=== PATIENT | female | born 1945 | race Caucasian/White ===

== ENCOUNTER 2019-09-14 08:08 | Outpatient (CLI) | payer MEDICARE, OTHER, SELFPAY ==
--- NOTE | 2019-09-14 08:51 | ECG_ITS ---
Measurements Intervals [place] Rate: 54 P: 62 MI: 190 QRS: -9 QRSD: 97 T: 7 QT: 397 QTc: 378 Interpretive Statements SINUS BRADYCARDIA LOW QRS VOLTAGE IN PRECORDIAL LEADS BORDERLINE R WAVE PROGRESSION, ANTERIOR LEADS INFERIOR INFARCT, AGE INDETERMINATE BASELINE ARTIFACT- I, II, III, AVR, AVL, AVF ABNORMAL ECG Electronically Signed On 09-14-2019 16:18:42 CDT by Michael Puentes D.O.
[2019-09-14 09:22] LABS: Basophils Percent Auto 0.4 % (0.2-1.2); Eosinophils Absolute Auto 0.1 K/mm3 (0-0.3); Eosinophils Percent Auto 1.9 % (0-4.4); Hemoglobin 13.5 g/dL (12.0-15.0); Immature Granulocyte Absolute 0.03 K/mm3 (0.00-0.031); Immature Granulocyte Percent A 0.6 % (0-0.5); Lymphocytes Absolute Auto 1.67 K/mm3 (0.9-3.2); Lymphocytes Percent Auto 31.3 % (18.3-44.2); Mean Corpuscular HGB Conc 32.9 g/dl (32-36); Mean Corpuscular Hemoglobin 28.7 pg (26-34); Mean Platelet Volume 9.9 fl (7.4-10.4); Monocytes Absolute Auto 0.4 K/mm3 (0.1-0.6); Monocytes Percent Auto 7.7 % (2.6-8.5); Neutrophils Absolute Auto 3.1 K/mm3 (1.3-6.7); Neutrophils Percent Auto 58.1 % (45.5-73.1); Platelet Count Result 219 k/mm3 (150-375); Red Blood Count 4.71 M/mm3 (4.2-5.4); Red Cell Distribution Width 13.2 % (11.5-14.5); White Blood Count 5.3 K/mm3 (4.5-10.0)
[2019-09-14 09:32] LABS: Hemoglobin A1C 5.6 % (<5.7); Urine Cotinine NEGATIVE
[2019-09-14 09:33] LABS: Albumin Level 4.6 g/dL (3.5-5.1)
[2019-09-14 09:34] LABS: Anion Gap 12.7 mmol/L (7-16); Blood Urea Nitrogen 18 mg/dL (7-17); Calcium 9.9 mg/dL (8.4-10.2); Carbon Dioxide 29 mmol/L (22-30); Chloride 100 mmol/L (98-107); Estimated Glomerular Filt Rate > 60; Glucose 104 mg/dL (65-105); Potassium 3.7 mmol/L (3.4-5.0); Sodium 138 mmol/L (137-145)
== END 2019-09-14 08:09 | disposition home or self-care (01) ==
LOC: ANHSURGERY 08:12
PROVIDERS: Anesthesiology; PCP Physician Assistant; Visit Provider Orthopaedic Surgery
DX: Z01.818 Encounter for other preprocedural examination (principal); M17.12 Unilateral primary osteoarthritis, left knee; Z79.899 Other long term (current) drug therapy; R94.31 Abnormal electrocardiogram [ECG] [EKG]
CPT/HCPCS: 36415; 80048; 80307; 82040; 83036; 85025; 86850; 86900; 86901; 87081; 93005

== ENCOUNTER 2019-09-21 02:43 | Outpatient (CLI) | payer MEDICARE, OTHER, SELFPAY ==
[2019-09-21 18:57] LABS: SARS-CoV-2 RNA PCR Negative
== END 2019-09-21 02:44 | disposition home or self-care (01) ==
LOC: ANHCOVIDDT 02:44
PROVIDERS: PCP Physician Assistant; Visit Provider Orthopaedic Surgery
DX: Z01.812 Encounter for preprocedural laboratory examination (principal); Z11.59 Encounter for screening for other viral diseases
CPT/HCPCS: 87635; C9803; U0003

== ENCOUNTER 2019-09-24 00:33 | Day surgery (SDC) | payer MEDICARE, OTHER, SELFPAY ==
[2019-09-14 08:31] VITALS: BP 150/72; PULSE 62; RESP 18; TEMP 37.1; O2SAT 96
[2019-09-14 08:50] VITALS: BMI 33.2
[2019-09-24] VITALS (14 sets, daily range): BP systolic 107–153; BP diastolic 46–89; PULSE 58–83; RESP 12–23; TEMP 35.8–36.7; O2SAT 97–100
--- NOTE | ~2019-09-24 | XR_ITS ---
EXAMINATION: XR knee LT 2V DATE: 09/24/2019 10:29 INDICATION: Total left knee arthroplasty. Postop. TECHNIQUE: 2 views of left knee were obtained. COMPARISON: Left knee radiographs 02/22/2019 FINDINGS: There is a total left knee arthroplasty with patellar resurfacing in near-anatomic alignmen t. No fracture. There is gas in the knee joint and soft tissues, consistent with recent surgery. IMPRESSION: 1. Total left knee arthroplasty in near-anatomic alignment. Reviewed, dictated and finalized at location B.
[2019-09-24] MEDS: LACTATED RINGERS 1,000 ML 30 ML IV CONT ×2 (06:38→10:13)
[2019-09-24] MEDS: ACETAMINOPHEN 500 MG TABLET 1000 MG PO (06:40)
[2019-09-24] MEDS: TRANEXAMIC ACID 1,000MG/ISO100 1,000 MG/100 ML BAG 200 MG IVPB (06:40)
--- NOTE | 2019-09-24 06:50 | P.PNAN_ITS ---
Anes - Initial Pre Proc Eval Procedure: Operation Date: 09/24/19 07:30 Proposed Procedures p Left Total Knee Arthroplasty - Miguel Chiang MD Date/Time: 09/24/19 06:50 Surgeon: Miguel Chiang MD Pre Op Diagnosis: OA Left Knee Patient Data Age: 73 Gender: F Height: 5 ft 7 in Weight: 96.2 kg Last Vital Signs Temp 37.1 C 09/14/19 08:31 Pulse 62 09/14/19 08:31 Resp 18 09/14/19 08:31 BP 150/72 H 09/14/19 08:31 Pulse Ox 96 09/14/19 08:31 Allergies Allergy/AdvReac Type Severity Reaction Status Date / Time adhesive tape Allergy Mild BRUISING Verified 09/14/19 08:24 Latex, Natural Rubber Allergy Mild rash Verified 09/14/19 08:24 Home Medications Medication Instructions Recorded Confirmed Type calcium 600 mg-D3 800 unit-mag11 1 tablet PO DAILY 02/22/19 09/24/19 History 50 bd-hpyu-wzztyn-nely-s.borat tablet cholecalciferol (vitamin D3) 100 1,000 unit PO DAILY 02/22/19 09/24/19 History mcg (4,000 unit) capsule fluticasone propionate 50 1 spray NASAL BID 02/22/19 09/24/19 History mcg/actuation nasal spray,suspension lisinopril 10 1 tablet PO DAILY 02/22/19 09/24/19 History mg-hydrochlorothiazide 12.5 mg tablet montelukast 10 mg tablet 10 mg PO DAILY 02/22/19 09/24/19 History simvastatin 40 mg tablet 40 mg PO HS 02/22/19 09/24/19 History Xarelto 10 mg tablet 10 mg PO DAILY #13 tablet NS 09/04/19 09/14/19 Rx cetirizine [Zyrtec] 10 mg DAILY 09/14/19 09/24/19 History Patient hx anesthesia problems: none Family hx anesthesia problems: none PMFSH Past Medical History Medical History BMI 33.0-33.9,adult Hyperlipidemia Hypertension Osteoarthritis of left knee Surgical History Surgical History History of arthroscopy of right knee (~2011) History of hip surgery (~2011) History of right knee joint replacement (~2012) Unicompartmental replacement Social History Social History Smoking status: Never smoker Alcohol intake: current Substance use: never Living arrangements: with family Additional living arrangements comments: [place] 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 @ [employer] Gender identity (if verbalized by the patient): Female Spiritual care concerns: No Anes - Eval Final PreProcedure Day of Procedure 09/24/19 06:50 Patient weight: obese Heart: regular rate and rhythm Lungs: clear to auscultation Airway: Mallampati scale class II Neurological: alert and oriented Last oral intake: >/= 8 hours ASA classification: III Emergent: no Anesthetic plan: proceed Anesthesia type and monitoring: general LMA and standard monitoring Informed Consent: The patient's anesthetic plan and its attendant risks and benefits were discussed with the patient/family/POA. Questions were solicited and answers provided to the satisfaction of the patient/family/POA.
[2019-09-24] MEDS: KETOROLAC 15 MG/ML VIAL (*BKC) IV PUSH (07:05)
--- NOTE | 2019-09-24 07:14 | WPDHPUPDATE1 ---
History and Physical Update Update Date/Time: 09/24/19 07:14 History and Physical has been reviewed, including an updated exam of the patient. There are NO changes in the patient's condition. Risks, benefits, and alternatives have been discussed and questions answered. Patient agrees to proceed with procedure.
[2019-09-24] MEDS: ceFAZolin 2 GM/D5W 50 ML 2 GM/50 ML BAG IVPB ×3 (07:37→23:01)
--- NOTE | 2019-09-24 07:50 | WPDANESPNB ---
Anes - Peripheral Nerve Block Date/Time: 09/24/19 07:50 I have discussed with the patient/family/POA the placement of a peripheral nerve block for post-operative pain management, including associated risks, benefits, complications, and side effects. Alternative methods of post-operative analgesia were detailed. Questions were solicited and answers provided to the satisfaction of the patient/family/POA. Time-Out: A pre-procedural Time-Out was completed immediately before starting the procedure and confirmed: Patient Identification, Site, Procedure, Patient Position and the Availability of Requisite Equipment. Clinical Indications: Acute post-operative pain management requested by the operative surgeon. Nerve Block Insertion Note Anes-nerve block: adductor canal left Patient position: supine Skin prep: chlorhexidine Needle: 22 gauge, stimulating, insulated echogenic needle. Needle length: 80 mm Technique: ultrasound Technique comment: mid 1mg,fent 50mcg Injectate: bupivacaine 0.5% with epi 5 mcg/ml (30ml) and dexamethasone (mg) (4) Observations: tolerated well Complications: none Procedure start time:: 723 Procedure end time:: 730
[2019-09-24] MEDS: SODIUM CHLORIDE 0.9% IV 50 ML, TRANEXAMIC ACID 1,000 MG TOPICAL (08:23)
[2019-09-24] MEDS: GENTAMICIN BONE CEMENT REFOBACIN 1 EACH TOPICAL (08:45)
--- NOTE | 2019-09-24 12:00 | ADMGEN ---
This patient, Leeann Landis, was admitted to 2 Medical Room 258-01. Patient/family oriented to hospital policies and general routines including ID bracelet, bed and alarms, visiting hours, pain management, procedures, bathroom and other care routines, personal items, smoking policy, room service/diet, and visiting hours. Valuables list has been completed. Information on how to activate the Rapid Response Team has been discussed. Patient/Family are encouraged to report perceived risks to care and to ask questions if they do not understand what they are told or what they should do.
[2019-09-24] MEDS: SODIUM CHLORIDE 0.9% IV 1,000 ML 125 ML IV CONT (12:57)
[2019-09-24] MEDS: oxyCODONE/ACETAMINOPHEN 5-325 MG TABLET 1 TABLET PO ×3 (13:00→20:48)
--- NOTE | 2019-09-24 13:26 | PM.PROC ---
Procedure Note - Detailed Date of procedure: 09/24/19 Pre-op diagnosis: OA Left Knee Post-op diagnosis: same Procedure performed: left total knee replacement Description of procedure: The patient was identified and proper site identified. In the preop holding area the anesthesia team performed a left sub sartorial block after which the patient was taken to the operating room and transferred to the OR table positioning supine taking care to pad the torso and extremities. After general anesthetic induction and intubation a nonsterile tourniquet was placed high on the left thigh. The left lower extremity was prepped and draped in the usual sterile fashion. The extremity was exsanguinated and with the knee flexed tourniquet was inflated to 300 mmHg remaining up for approximately 70 minutes. An anterior midline incision was made and a mid vastus approach was used. Infra and suprapatellar fat pads were excised. Patella was resected leaving 15 mm thickness and prepared for the size 31 round three peg component. Using the intramedullary guide the distal femur was cut in the proper orientation for the size 65 femoral component. Using the extramedullary guide the tibia was cut perpendicular to the long axis protecting collateral ligaments and popliteal structures. It was sized to a 67. Flexion and extension gaps were balanced. Trial reduction was undertaken and the weight-bearing line was noted to passed through the center of the joint. Proximal tibia was drilled and punched in the proper orientation for the real component. Trial components were removed. The bone surfaces were washed with pulsatile lavage and dried. The real components were cemented simultaneously. The knee was held in extension and the patella held clamped until the cement had cured. Excess cement was removed from the joint. After trialing it was determined that the 14 mm insert gave full range of motion from 0-120 degrees of flexion and the patella tracked in the femoral groove with no lift-off. After final lavage the joint the real 14 E poly insert was placed and secured with a locking bar. A Betadine and saline wash was placed into the wound and allowed to sit for approximately 3 minutes and then evacuated. Periarticular tissues were infiltrated with 60 cc of the arthroplasty solution. 1 g of tranexamic acid was left in the wound. The extensor mechanism was repaired with #2 Vicryl suture and 0 looped PDS suture. Subcu was reapproximated with two 0 strata fix and three 0 nylon was used for the skin. A sterile dressing was applied. she tolerated the procedure well, was awakened and extubated, transferred to the bed and was taken to recovery area in stable condition. There were no known intraoperative complications. Perioperative antibiotics were administered. Anesthesia: GETA Surgeon: Miguel Chiang MD Estimated blood loss (mL): 100 Tourniquet time (min): 70 Drains: No Packing: No Pathology: none sent Complications: No immediate complications Disposition: PACU
--- NOTE | 2019-09-24 14:00 | WPDCN ---
Assessment and Plan Assessment and plan (1) Osteoarthritis of left knee: Qualifiers: Osteoarthritis type: primary Qualified Code(s): M17.12 - Unilateral primary osteoarthritis, left knee Code(s): M17.12 - Unilateral primary osteoarthritis, left knee Status: Acute Assessment and Plan: Post-operative day 0, status post left total knee replacement. Wound care and pain control will be deferred to Dr. Chiang. DVT prophylaxis also deferred to primary service. Check baseline labs in a.m. (2) Hypertension: Code(s): I10 - Essential (primary) hypertension Status: Acute Assessment and Plan: Blood pressures were reviewed and they have been running a bit high postoperatively. Resume antihypertensives and monitor closely. (3) Hyperlipidemia: Code(s): E78.5 - Hyperlipidemia, unspecified Status: Acute Assessment and Plan: Continue statin and check LFTs. Additional Plan Thank you for allowing us to participate in this patient's care. Please do not hesitate to contact us with any questions. Supervising physician for this medical consultation is Dr. Rossi Miller. HPI Data of Consult Date/Time: 09/24/19 14:00 Requesting Physician: Miguel Chiang MD Primary Care Provider: Miracle Cuevas, PA Consult Narrative Narrative: Leeann Landis is a 73-year-old female with a history of osteoarthritis, hypertension, and hyperlipidemia whom the hospitalist service has been consulted for management of her medical conditions postoperatively, status post left total knee replacement. She has had longstanding pain in that knee, not amenable to conservative outpatient treatment and thus she elected for replacement. Her surgery was performed under general anesthesia with no immediate complications documented and and estimated blood loss of 100 mL. At the time my evaluation she is in good spirits and has no complaints. I believe she received a nerve block and has minimal if any pain. She has been up and walk to the bathroom without issue. She had slight nausea this afternoon, and only had clear liquids for lunch but that has resolved and she is eager for dinner. She has not had postoperative fever, chills, sweats, vomiting, chest pain, shortness of breath. She also denies paresthesias, skin color, and temperature changes distal to the surgical site. Review of Systems Review of Systems: Narrative: Twelve systems were reviewed with pertinent positives and negatives as per HPI. She believes her chronic medical conditions are well controlled on home medications. She takes Zyrtec and uses Flonase each night due to year around seasonal allergies. She wears contacts an corrective lenses. No recent cold or flu symptoms. No recent travel. She denies cough and shortness of breath. No exposure to those positive for COVID-19. No history of venous thromboembolism. Except as documented, all other systems were reviewed and are negative. [facility] Past Medical History Medical History (Updated 09/24/19 @ 20:29 by Cristal Haddad PA-C) Benign colon polyp BMI 33.0-33.9,adult Hyperlipidemia Hypertension Osteoarthritis Seasonal allergies Surgical History Surgical History (Updated 09/24/19 @ 13:38 by Cristal Haddad PA-C) History of arthroscopy of right knee (~2011) History of bursectomy (~2011) Left greater trochanteric bursectomy. History of dilatation and curettage History of left knee replacement (~09/24/19) Status post unicompartmental knee replacement, right (~02/2012) Family History Family History (Updated 09/24/19 @ 20:29 by Cristal Haddad PA-C) Mother Hypertension Liver cancer Father Coronary artery disease Sibling
[2019-09-24] MEDS: ONDANSETRON INJ 4 MG/2 ML VIAL IV PUSH (14:54)
[2019-09-24] MEDS: CALCIUM CARBONATE (TUMS) 500 MG (200 MG ELEMENTAL) PO (17:39)
[2019-09-24] MEDS: FLUTICASONE PROPIONATE 0.05% NA SPR 16 GM BTL (*BKC) 1 SPRAY NASAL (17:41)
[2019-09-24] MEDS: DOCUSATE SODIUM 100 MG CAPSULE PO (17:43)
[2019-09-24] MEDS: SIMVASTATIN 20 MG TABLET 40 MG PO (20:48)
[2019-09-25] VITALS: BP 127/58; PULSE 60; RESP 18; TEMP 36.6; O2SAT 100
[2019-09-25] MEDS: oxyCODONE/ACETAMINOPHEN 5-325 MG TABLET 1 TABLET PO ×4 (00:53→12:53)
[2019-09-25 04:00] VITALS: BP 118/75; PULSE 51; RESP 18; TEMP 36.3; O2SAT 98
[2019-09-25 05:41] LABS: Hematocrit 32.2 % (37.0-47.0); Hemoglobin 10.8 g/dL (12.0-15.0); Mean Corpuscular HGB Conc 33.5 g/dl (32-36); Mean Corpuscular Volume 86.6 fl (80-100); Mean Platelet Volume 10.5 fl (7.4-10.4); Platelet Count Result 173 k/mm3 (150-375); Red Blood Count 3.72 M/mm3 (4.2-5.4); Red Cell Distribution Width 13.1 % (11.5-14.5); White Blood Count 11.6 K/mm3 (4.5-10.0)
[2019-09-25 05:51] LABS: Alanine Aminotransferase 18 U/L (4-35); Albumin Level 3.6 g/dL (3.5-5.1); Alkaline Phosphatase 62 U/L (38-126); Anion Gap 7 mmol/L (8-16); Aspartate Amino Transferase 28 U/L (14-36); Bilirubin,Total 0.4 mg/dL (0.2-1.3); Blood Urea Nitrogen 19 mg/dL (7-17); Calcium 8.7 mg/dL (8.4-10.2); Carbon Dioxide 24 mmol/L (22-30); Chloride 101 mmol/L (98-107); Estimated CRCL calculation 66 ml/min; Estimated Glomerular Filt Rate > 60; Glucose 121 mg/dL (65-105); Magnesium 1.9 mg/dL (1.6-2.3); Potassium 4.1 mmol/L (3.4-5.0); Sodium 132 mmol/L (137-145)
[2019-09-25] MEDS: ceFAZolin 2 GM/D5W 50 ML 2 GM/50 ML BAG IVPB (06:53)
--- NOTE | 2019-09-25 07:41 | PM.DS ---
DS: Admitting Diagnosis Admitting Diagnosis Admitting Diagnosis: Unilateral primary osteoarthritis, left knee DS: Discharge Diagnosis Discharge Diagnosis (1) Osteoarthritis of left knee: Qualifiers: Osteoarthritis type: primary Qualified Code(s): M17.12 - Unilateral primary osteoarthritis, left knee Code(s): M17.12 - Unilateral primary osteoarthritis, left knee Status: Acute (2) Status post total left knee replacement: Code(s): Z96.652 - Presence of left artificial knee joint Status: Chronic Assessment and Plan: 74-year-old female postop day one left total knee replacement and doing well. Plan discharge home today with follow-up in two weeks. Surgery was discussed and instructions were reviewed in detail. DS: Summary Time Spent with Patient Time attestation: Total time spent providing and/or coordinating discharge services: Exam Const: General: cooperative, alert and awake Nutritional Appearance: other Orientation/consciousness: oriented to person, oriented to place, oriented to time and patient oriented x3 HENMT: Head: normal to inspection Ears: hearing grossly normal bilaterally Teeth and gingiva: fair dentition Eyes: General: appearance normal, both eyes and all related structures Neck: Neck: normal visual inspection and full ROM Chest: Chest palpation & inspection: normal inspection of the chest and No Pacemaker present Resp: Effort & Inspection: normal respiratory effort and able to speak in complete sentences Cardio: Rate: regular rate Peripheral pulses: Peripheral pulses 2+ throughout ( left lower extremity) GI: Inspection: normal to inspection Back/Spine/Pelvis: Cervical Spine: normal cervical lordosis Skin: General skin exam: normal color, no petechiae and no purpura Wounds: wounds noted ( skin edges well opposed to the left knee; scant serous drainage) Neuro: General: oriented to person, oriented to place, oriented to time and patient oriented x3 Cognition (Neuro): normal cognition Speech: normal speech Sensory Exam: normal sensation Extrem: General: normal to inspection Psych: Appearance: grossly normal Mental Status: mental status grossly normal Insight: Good insight present (Psych) Judgement: Good judgement present (Psych) DS: Data Data Completed and Pending Labs on day of discharge: Labs from last 24 hours 09/25/19 09/25/19 05:16 05:16 WBC 11.6 H RBC 3.72 L Hgb 10.8 L Hct 32.2 L MCV 86.6 MCH 29.0 MCHC 33.5 RDW 13.1 Plt Count 173 MPV 10.5 H Sodium 132 L Potassium 4.1 Chloride 101 Carbon Dioxide 24 Anion Gap 7 L BUN 19 H Creatinine 0.80 Estim Creat Clear Calc 66 Estimated GFR > 60 Glucose 121 H Calcium 8.7 Magnesium 1.9 Total Bilirubin 0.4 AST 28 ALT 18 Alkaline Phosphatase 62 Total Protein 6.0 L Albumin 3.6 Discharge Plan Discharge Patient Disposition: Home, Self-Care Discharge Instructions: 3 times daily for 20 minutes each time, reclining in bed with ice packs over the incision and a pillow underneath the affected calf. please do not get the wound wet. Be sure to read through all the information that came from a my office and the hospital. Most of the answer was you will need can be found that material. Call the office with any questions that you cannot find answers to, or concerns you may have. After the Xarelto is completed, start taking one coated 325 mg aspirin daily and do this for four more weeks. Please call [facility] at as soon as possible to verified follow-up appointment to be seen in 2 weeks. Also, call the office with any orthopedic/surgical related questions prior to follow-up. Be sure to get up and move around several times daily but do not overdo it. Patient Instructions: Precautions after Total Joint Replacement Surgery (DC), Joint Replacement Surgery (DC) Stand Alone Forms: General Discharge Instruc
[2019-09-25] MEDS: CALCIUM CARBONATE (TUMS) 500 MG (200 MG ELEMENTAL) PO ×2 (07:46→11:16)
[2019-09-25] MEDS: ONDANSETRON INJ 4 MG/2 ML VIAL IV PUSH ×2 (07:46→12:54)
--- NOTE | 2019-09-25 07:48 | WPDANESPN ---
Anes - Prog Note Post-Op Date/Time: 09/25/19 07:48 Cardiovascular status: normal Respiratory status: normal Airway patency: baseline Mental status: baseline Post-Op hydration status: normal Vital Signs: Last Vital Signs Temp 36.3 C L 09/25/19 04:00 Pulse 51 L 09/25/19 04:00 Resp 18 09/25/19 04:00 BP 118/75 09/25/19 04:00 Pulse Ox 98 09/25/19 04:00 I/O: Intake & Output 09/24/19 09/24/19 09/25/19 15:59 23:59 07:59 Intake Total 522 898 7619 Output Total 275 750 Balance 720 615 250 Laboratory Tests 09/25/19 05:16 09/25/19 05:16 09/25/19 09/25/19 05:16 05:16 WBC 11.6 H RBC 3.72 L Hgb 10.8 L Hct 32.2 L MCV 86.6 MCH 29.0 MCHC 33.5 RDW 13.1 Plt Count 173 MPV 10.5 H Sodium 132 L Potassium 4.1 Chloride 101 Carbon Dioxide 24 Anion Gap 7 L BUN 19 H Creatinine 0.80 Estim Creat Clear Calc 66 Estimated GFR > 60 Glucose 121 H Calcium 8.7 Magnesium 1.9 Total Bilirubin 0.4 AST 28 ALT 18 Alkaline Phosphatase 62 Total Protein 6.0 L Albumin 3.6 Post-procedural complaints: none Patient Feedback: Patient satisfied with anesthetic care.
[2019-09-25] MEDS: CHOLECALCIFEROL 1,000 UNIT TABLET 1000 UNITS PO (08:52)
[2019-09-25] MEDS: FLUTICASONE PROPIONATE 0.05% NA SPR 16 GM BTL (*BKC) 1 SPRAY NASAL (08:52)
[2019-09-25] MEDS: hydroCHLOROthiazide 12.5 MG CAPSULE PO (08:52)
[2019-09-25] MEDS: lisinopriL 10 MG TABLET PO (08:52)
[2019-09-25] MEDS: polyethylene glycoL 3350 17 GM POWD.PACK PO (08:53)
[2019-09-25] MEDS: MONTELUKAST SODIUM 10 MG TABLET PO (08:53)
[2019-09-25] MEDS: RIVAROXABAN 10 MG TABLET PO (08:53)
[2019-09-25] MEDS: LORATADINE 10 MG TABLET BY MOUTH (08:53)
[2019-09-25] MEDS: DOCUSATE SODIUM 100 MG CAPSULE PO (08:55)
[2019-09-25 09:30] VITALS: BP 149/78; PULSE 59; RESP 18; TEMP 36.3; O2SAT 100
--- NOTE | 2019-09-25 10:11 | PM.IMPN ---
Progress Note: A&P Assessment and Plan (1) Osteoarthritis of left knee: Qualifiers: Osteoarthritis type: primary Qualified Code(s): M17.12 - Unilateral primary osteoarthritis, left knee Code(s): M17.12 - Unilateral primary osteoarthritis, left knee Status: Acute Assessment and Plan: -----Post-operative day 1, status post left total knee replacement. doing well with physical therapy and will likely discharge today. She is okay to go home from medical stand point. DVT prophylaxis and pain per Dr. bradford (2) Hypertension: Code(s): I10 - Essential (primary) hypertension Status: Acute Assessment and Plan: ----- blood pressure wax and wane, last being 149/78. Continue lisinopril and hydrochlorothiazide (3) Hyperlipidemia: Code(s): E78.5 - Hyperlipidemia, unspecified Status: Acute Assessment and Plan: ----- continue statin therapy (4) Systolic murmur: Code(s): R01.1 - Cardiac murmur, unspecified Status: Acute Assessment and Plan: ----- does not sound worrisome at all and very slight. She has recently saw cardiology. No infection suspected. She is to follow-up with her primary care physician for routine monitoring. Additional Plan Thank you for allowing us to participate in this patient's care. Please do not hesitate to contact us with any questions. Time Spent With Patient Time with patient: 25 - 35 minutes Subjective Date/time seen: 09/25/19 10:11 Interval history: Pt is a 74-year-old here for elective left total knee replacement. Patient was seen today and states her pain is only a 1/10 at rest and does increase to 4/10 when she is at the moving. She had some nausea with physical therapy today which Vladimir has helped. She is passing gas but not having any bowel movements. She denies vomiting, chest pain, shortness of breath, fevers, chills or new cough. She only has a few stairs to her house and thinks she could go home today. she has no history of a murmur and said she saw Cardiology recently and was not told she needed any workup. She is going to follow-up with her primary care physician about this. Review of Systems Review of Systems: All systems reviewed & are unremarkable except as noted in HPI and below Exam Narrative: Exam Narrative: General: Well developed well nourished patient Resting comfortably in the bed in NAD HEENT: normocephalic Neck: supple Neuro: Alert and oriented x4 CV:RRR with very slight systolic murmur Resp:CTA Abd: Soft, non distended. No pain to palpation. Positive bowel sounds Extremities: Left leg wound examine without bleeding, discharge or erythema. No pain to palpation to the lower extremities. Pulses and sensation intact. Objective Data Vital Signs Vital Signs: Vital Signs - 24 hr 09/24/19 10:13 09/24/19 10:25 09/24/19 10:35 Temperature 97.0 F L Pulse Rate 83 68 66 Respiratory Rate 23 H 18 12 Blood Pressure 129/89 116/67 116/67 Pulse Oximetry 97 100 100 09/24/19 10:50 09/24/19 11:05 09/24/19 11:20 Temperature Pulse Rate 63 65 58 L Respiratory Rate 12 12 12 Blood Pressure 115/67 113/67 115/67 Pulse Oximetry 98 99 98 09/24/19 11:35 09/24/19 11:50 09/24/19 12:10 Temperature 96.4 F L 97.3 F L Pulse Rate 77 64 63 Respiratory Rate 16 18 18 Blood Pressure 112/72 135/64 142/68 H Pulse Oximetry 99 100 100 09/24/19 12:40 09/24/19 13:40 09/24/19 17:40 Temperature 97.1 F L 97.4 F L 97.6 F Pulse Rate 59 L 60 62 Respiratory Rate 16 18 18 Blood Pressure 153/76 H 148/70 H 151/75 H Pulse Oximetry 100 98 100 09/24/19 20:00 09/25/19 00:00 09/25/19 04:00 Temperature 98.1 F 97.9 F 97.4 F L Pulse Rate 62 60 51 L Respiratory Rate 20 18 18 Blood Pressure 107/46 L 127/58 L 118/75 Pulse Oximetry 100 100 98 09/25/19 09:30 Temperature 97.4 F L Pulse Rate 59 L Respiratory Rate 18 Blood Pressure 149/78 H Pulse Oximetry 100 In
--- NOTE | 2019-09-25 10:15 | PCOTNOTE ---
Unable to complete OT evaluation at this time due to patient nausea. Patient agreeable to OT coming back for evaluation prior to lunch
== END 2019-09-25 14:00 | disposition home or self-care (01) ==
LOC: ANHSURGERY 09:54 → ANH2MED 12:00
PROVIDERS: Physician Assistant; PCP Physician Assistant; Visit Provider Orthopaedic Surgery
PROC: (CPT 27447; principal; 2019-09-24 07:30)
DX: M17.12 Unilateral primary osteoarthritis, left knee (principal); G89.18 Other acute postprocedural pain; I10 Essential (primary) hypertension; E78.5 Hyperlipidemia, unspecified; Z79.01 Long term (current) use of anticoagulants; E66.9 Obesity, unspecified; Z68.32 Body mass index [BMI] 32.0-32.9, adult
CPT/HCPCS: 27447; 64447; 36415; 73560; 80053; 83735; 85027; 97110; 97116; 97161; 97165; 97530; A9270; C1713; C1776; J0171; J0690; J1100; J1885; J2250; J2270; J2370; J2405; J2704; J2795; J3010; J7030; J7120